=== PATIENT | female | born 1940 | race Asian ===

== ENCOUNTER 2018-01-26 19:44 | Emergency (ER) | payer OTHER, MEDICAID ==
[~2018-01-26] VITALS: Ht 149.9 cm; Wt 55.0 kg
[2018-01-26] MEDS ORDERED: CELE100 PO (19:54)
[2018-01-26] MEDS ORDERED: ATOR10TA84 PO (19:54)
[2018-01-26] MEDS ORDERED: KETOROLAC TROMETHAMINE 60 MG/2 ML VIAL IM ONE (20:30)
[2018-01-26] MEDS ORDERED: METHOCARBAMOL 500 MG TABLET PO ONE (20:30)
[2018-01-26 21:05] VITALS: BP 165/74
== END 2018-01-26 21:36 | disposition home or self-care (01) ==
LOC: EMS 19:45
DX: S39.012A Strain of muscle, fascia and tendon of lower back, initial encounter (principal); H40.9 Unspecified glaucoma; R03.0 Elevated blood-pressure reading, without diagnosis of hypertension; Z83.3 Family history of diabetes mellitus; X50.0XXA Overexertion from strenuous movement or load, initial encounter; Y93.89 Activity, other specified; Y92.89 Other specified places as the place of occurrence of the external cause; Y99.8 Other external cause status
CPT/HCPCS: 96372; 99283; J1885